=== PATIENT | male | born 1980 | race African-American/Black ===

== ENCOUNTER 2019-03-04 13:20 | Inpatient (IN) | payer OTHER ==
[~2019-03-04] VITALS: Ht 170.2 cm; Wt 89.1 kg
[2019-03-04] MEDS ORDERED: DIPHENHYDRAMINE 50 MG CAP PO ONE (16:30)
[2019-03-04] MEDS ORDERED: SOD CHLORIDE 0.9% 1,000 ML IV STA ×2 (16:39→18:13)
[2019-03-04] MEDS ORDERED: DIPHENHYDRAMINE 50 MG INJ IV ONE (17:00)
--- NOTE | 2019-03-04 17:00 | ERD ---
ER Documentation Chief Complaint Chief Complaint bilateral leg pain and intermittent tongue swelling,speech is clear, no sob HPI 38-year-old male presenting with sensation of his tongue being swollen and bilateral leg cramping. Denies any associated difficulty breathing or swallowing. He states that he was at [facility] 2 days ago in the inpatient psychiatric unit. He received "3 shots". When he woke up, he was feeling this way. He states that no treatment was given. He was recently released. He states he has been walking a lot and is feeling cramping in his legs. No change in urination. No chest pain. No fevers or chills. ROS All systems reviewed and are negative except as per history of present illness. Allergies Allergies: Coded Allergies: haloperidol (Verified Allergy, Unknown, 03/04/19) risperidone (Verified Allergy, Unknown, 03/04/19) PMhx/Soc Medical and Surgical Hx: pt denies Medical Hx, pt denies Surgical Hx History of Surgery: No Anesthesia Reaction: No Hx Neurological Disorder: Yes (Seizure disorder) Hx Respiratory Disorders: Yes (asthma) Hx Cardiac Disorders: No Hx Psychiatric Problems: Yes Hx Miscellaneous Medical Probl: No Hx Alcohol Use: No Hx Substance Use: No Hx Tobacco Use: No Smoking Status: Never smoker FmHx Family History: No diabetes Physical Exam Vitals Vital Signs Date Temp Pulse Resp B/P (MAP) Pulse Ox O2 O2 Flow FiO2 Time Delivery Rate 03/04/19 78 22 149/99 100 Room Air 18:30 (116) 03/04/19 99.4 118 18 160/69 96 13:40 (99) Physical Exam Const: No acute distress Head: Atraumatic Eyes: Normal Conjunctiva ENT: Normal External Ears, Nose and Mouth. Fasciculations of the tongue noted. No tongue or intraoral swelling. No stridor. No drooling. Normal phonation. No trismus Neck: Full range of motion. No meningismus. Resp: Clear to auscultation bilaterally Cardio: Regular rate and rhythm, no murmurs. 2+ distal pulses Abd: Soft, non tender, non distended. Normal bowel sounds Skin: No petechiae or rashes Back: No midline or flank tenderness Ext: No cyanosis, or edema. Mild calf tenderness Neur: Awake and alert Psych: Normal Mood and Affect Result Diagram: 03/04/19 1645 03/04/19 1645 Results 24 hrs Laboratory Tests Test 03/04/19 16:45 White Blood Count 9.3 10^3/ul Red Blood Count 4.13 10^6/ul Hemoglobin 13.6 g/dl Hematocrit 39.8 % Mean Corpuscular Volume 96.4 fl Mean Corpuscular Hemoglobin 32.9 pg Mean Corpuscular Hemoglobin Concent 34.2 g/dl Red Cell Distribution Width 13.1 % Platelet Count 207 10^3/UL Mean Platelet Volume 10.2 fl Immature Granulocytes % 0.200 % Neutrophils % 70.1 % Lymphocytes % 22.6 % Monocytes % 6.6 % Eosinophils % 0.3 % Basophils % 0.2 % Nucleated Red Blood Cells % 0.0 /100WBC Immature Granulocytes # 0.020 10^3/ul Neutrophils # 6.5 10^3/ul Lymphocytes # 2.1 10^3/ul Monocytes # 0.6 10^3/ul Eosinophils # 0.0 10^3/ul Basophils # 0.0 10^3/ul Nucleated Red Blood Cells # 0.0 10^3/ul Urine Color YELLOW Urine Clarity CLEAR Urine pH 5.0 Urine Specific [place] 1.027 Urine Ketones TRACE mg/dL Urine Nitrite NEGATIVE mg/dL Urine Bilirubin NEGATIVE mg/dL Urine Urobilinogen NEGATIVE mg/dL Urine Leukocyte Esterase NEGATIVE Lori/ul Urine Microscopic RBC 17 /HPF Urine Microscopic WBC 1 /HPF Urine Hemoglobin 3+ mg/dL Urine Glucose NEGATIVE mg/dL Urine Total Protein NEGATIVE mg/dl Sodium Level 147 mmol/L Potassium Level 4.1 mmol/L Chloride Level 107 mmol/L Carbon Dioxide Level 28 mmol/L Anion Gap 12 Blood Urea Nitrogen 13 mg/dl Creatinine 1.06 mg/dl Est Glomerular Filtrat Rate mL/min > 60 mL/min Glucose Level 86 mg/dl Calcium Level 9.5 mg/dl Total Bilirubin 0.4 mg/dl Direct Bilirubin 0.00 mg/dl Indirect Bilirubin 0.4 mg/dl Aspartate Amino Transf (AST/SGOT) 100 IU/L Alanine Aminotransferase (ALT/SGPT) 42 IU/L Alkaline Phosphatase 106 IU/L Creatine Kinase 5314 IU/L Total Protein 8.3 g/dl Albumin 4.6 g/dl Globulin 3.70 g/dl Albumin/Globulin Ratio 1.24 Current Medications Medications Dose Sig/Erum Start Time Status Last (Trade) Ordered Route PRN Stop Time Admin Dose Reason Admin 50 mg ONCE ONCE 03/04/19 DC Diphenhydrami PO 16:30 03/04/19 ne HCl 16:40 (Benadryl) 50 mg ONCE ONCE 03/04/19 DC 03/04/19 Diphenhydrami IV 17:00 03/04/19 16:50 ne HCl 17:01 (Benadryl) Sodium 1,000 ml @ Q1H STAT 03/04/19 DC 03/04/19 Chloride 1,000 mls/hr IV 16:39 03/04/19 16:50 17:38 Sodium 1,000 ml @ Q1H STAT 03/04/19 03/04/19 Chloride 1,000 mls/hr IV 18:13 03/04/19 18:43 19:12 Lactated 1,000 ml @ Q1H STAT 03/04/19 03/04/19 Ringer's 1,000 mls/hr IV 18:13 03/04/19 18:44 19:12 Ondansetron 4 mg BRIDGE ORDER 03/04/19 HCl (Zofran PRN IV 19:00 03/05/19 Inj) NAUSEA/VOMITI 18:59 NG 650 mg ER BRIDGE 03/04/19 Acetaminophen PRN PO 19:00 03/05/19 (Tylenol .MILD PAIN 18:59 Tab) 1-3 OR TEMP Procedures/MDM EMERGENT LABS AND DIAGNOSTIC STUDIES: Lab Results above were reviewed and interpreted by me. CBC: no anemia or evidence of infection CMP: Mild hyponatremia, likely secondary to dehydration. No evidence of clinically significant electrolyte abnormality, acidosis, renal failure, hypoglycemia, liver disease, or biliary obstruction CK: Significantly elevated, consistent with rhabdomyolysis UA: Positive for blood. no evidence of infection Initial Nursing notes reviewed. Previous Medical Records requested via the Electronic Health Record. EMERGENCY DEPARTMENT COURSE / MEDICAL DECISION MAKING: Patient presents with likely dystonic reaction secondary to Haldol administration 2 days ago. He was treated with IV Benadryl initially with no significant improvement. Subsequently I gave him IV Benadryl again as well as Ativan IV. Given his calf pain, CK was checked and significantly elevated, consistent with rhabdomyolysis. 3 L of IV fluids were ordered in the ER. Patient will be admitted for further stabilization and management. Accepting Care Team: Current data and ongoing care discussed. Time: Time of admission Primary Provider: Dr. Lambert Outstanding Data: none Departure Diagnosis: Primary Impression: Acute dystonic reaction due to drugs Additional Impression: Rhabdomyolysis Rhabdomyolysis type: non-traumatic Qualified Codes: M62.82 - Rhabdomyolysis Condition: Serious DAVID BONDS MD Mar 04, 2019 17:00
[2019-03-04] MEDS ORDERED: LACTATED RINGER'S 1,000 ML IV STA (18:13)
[2019-03-04] MEDS ORDERED: ONDANSETRON 4 MG INJ IV PRN ×2 (19:00→21:00)
[2019-03-04] MEDS ORDERED: ACETAMINOPHEN 325 MG TAB PO PRN ×2 (19:00→21:00)
[2019-03-04 20:58] VITALS: Ht 170.2 cm; Wt 89.1 kg
[2019-03-04] MEDS ORDERED: ALBUTEROL/IPRATROPIUM (NEB) 3 ML AMP HHN PRN (21:00)
[2019-03-04] MEDS ORDERED: NACL 0.9% 3 ML SYG IV SCH (21:00)
[2019-03-04] MEDS ORDERED: QUET300T2 PO (21:24)
[2019-03-04] MEDS ORDERED: LEVE500S8 PO (21:24)
[2019-03-04 21:37] VITALS: BP 131/79; PULSE 77; RESP 20
--- NOTE | 2019-03-04 22:26 | HP ---
Date/Time of Note Date/Time of Note DATE: 03/04/19 TIME: 22:26 Assessment/Plan VTE Prophylaxis Risk score (from Nsg)>0 risk: 1 SCD applied (from Nsg): Yes Pharmacological prophylaxis: heparin Lines/Catheters IV Catheter Type (from Nrsg): Saline Lock Assessment/Plan Assessment/Plan 1. Dystonic reaction -Patient was admitted to inpatient psych unit at [facility] and claims to have received " 3 shots". When he woke up, he felt his tongue was swollen and was experiencing bilateral leg cramping -Status post IV Benadryl and Ativan in the ER -Monitor closely -Hold psych meds for now 2. Rhabdomyolysis -IV hydration 3. History of seizure: Continue Keppra 4. Homelessness: Social work consult 5. History of brain surgery Result Diagram: 03/04/19 1645 03/04/19 1645 Results 24hrs Laboratory Tests Test 03/04/19 16:45 White Blood Count 9.3 Red Blood Count 4.13 L Hemoglobin 13.6 L Hematocrit 39.8 L Mean Corpuscular Volume 96.4 Mean Corpuscular Hemoglobin 32.9 Mean Corpuscular Hemoglobin Concent 34.2 Red Cell Distribution Width 13.1 Platelet Count 207 Mean Platelet Volume 10.2 Immature Granulocytes % 0.200 Neutrophils % 70.1 Lymphocytes % 22.6 Monocytes % 6.6 Eosinophils % 0.3 Basophils % 0.2 Nucleated Red Blood Cells % 0.0 Immature Granulocytes # 0.020 Neutrophils # 6.5 Lymphocytes # 2.1 Monocytes # 0.6 Eosinophils # 0.0 Basophils # 0.0 Nucleated Red Blood Cells # 0.0 Urine Color YELLOW Urine Clarity CLEAR Urine pH 5.0 Urine Specific [place] 1.027 Urine Ketones TRACE A Urine Nitrite NEGATIVE Urine Bilirubin NEGATIVE Urine Urobilinogen NEGATIVE Urine Leukocyte Esterase NEGATIVE Urine Microscopic RBC 17 H Urine Microscopic WBC 1 Urine Hemoglobin 3+ H Urine Glucose NEGATIVE Urine Total Protein NEGATIVE Sodium Level 147 H Potassium Level 4.1 Chloride Level 107 Carbon Dioxide Level 28 Anion Gap 12 Blood Urea Nitrogen 13 Creatinine 1.06 Est Glomerular Filtrat Rate mL/min > 60 Glucose Level 86 Calcium Level 9.5 Total Bilirubin 0.4 Direct Bilirubin 0.00 Indirect Bilirubin 0.4 Aspartate Amino Transf (AST/SGOT) 100 H Alanine Aminotransferase (ALT/SGPT) 42 Alkaline Phosphatase 106 Creatine Kinase 5314 H Total Protein 8.3 H Albumin 4.6 Globulin 3.70 H Albumin/Globulin Ratio 1.24 HPI/ROS Admit Date/Time Admit Date/Time Mar 04, 2019 at 18:37 Hx of Present Illness Patient is a 38-year-old homeless male with a history of asthma, seizure, brain surgery, psychiatric disorder who presents the ER complaining of tongue swelling and bilateral leg cramping/pain. Patient was admitted to inpatient psych facility at [facility] 3 days ago. He reported receiving " 3 shots" and when he wake up he felt his tongue was swollen and was experiencing bilateral leg cramping. Lab in the ER shows CK of 5300. He was treated with IV Benadryl and was given Ativan as well. PMH/Family/Social Past Medical History Past Surgical Hx: other Family History Significant Family History: no pertinent family hx Social History Alcohol Use: none Smoking Status: Never smoker Drug Use: none Exam Constitutional: other (No acute distress) Head: normocephalic, atraumatic Eyes: EOMI, PERRL Respiratory: clear to auscultation, normal air movement Cardiovascular: regular rate and rhythm Gastrointestinal: soft Extremities: normal pulses Medications Current Medications IV Flush (NS 3 ml) 3 ml PER PROTOCOL IV ; Start 03/04/19 at 21:00 Ondansetron HCl (Zofran Inj) 4 mg Q6H PRN IV NAUSEA/VOMITING; Start 03/04/19 at 21:00 Acetaminophen (Tylenol Tab) 650 mg Q6H PRN PO .PAIN 1-3 OR TEMP; Start 03/04/19 at 21:00 Albuterol/ Ipratropium (Duoneb) 3 ml Q2H RESP THERAPY PRN HHN SHORTNESS OF BREATH; Start 03/04/19 at 21:00 Coded Allergies: haloperidol (Verified Allergy, Unknown, 03/04/19) risperidone (Verified Allergy, Unknown, 03/04/19) Social History Smoking Status: Current every day smoker Exam/Review of Systems Vital Signs Vitals Vital Signs Date Temp Pulse Resp B/P (MAP) Pulse Ox O2 O2 Flow FiO2 Time Delivery Rate 03/04/19 98.7 77 20 131/79 97 21:37 (96) 03/04/19 Room Air 20:32 FLOWER PERDOMO MD Mar 04, 2019 22:26
[2019-03-04] MEDS ORDERED: LEVETIRACETAM (100 MG/ML) 5ML CUP PO SCH (22:30)
[2019-03-05] MEDS: SOD CHLORIDE 0.9% 1,000 ML IV SCH ×2 (01:13→06:56)
[2019-03-05] MEDS ORDERED: ZOLPIDEM 5 MG TAB PO PRN (01:30)
[2019-03-05 02:00] VITALS: BP 130/80; PULSE 65; RESP 19
== END 2019-03-05 08:00 | disposition left against medical advice (07) | DRG 558 ==
LOC: E/R 13:20 → 2NE 18:37 → OBSVTOIN 21:42
PROVIDERS: ADMIT Internal Medicine; ATTEND Internal Medicine
DX: M62.82 Rhabdomyolysis (principal); G40.909 Epilepsy, unspecified, not intractable, without status epilepticus; J45.909 Unspecified asthma, uncomplicated; Z59.0 Homelessness
CPT/HCPCS: 36415; 80053; 81001; 82550; 83735; 84100; 85025; 96374; G0378; J1200; J7030; J7120